=== PATIENT | female | born 1965 | race Caucasian/White ===

== ENCOUNTER 2018-06-15 14:28 | Day surgery (SDC) | payer OTHER ==
[2018-06-15] MEDS ORDERED: Depo-Medrol 40 MG/ML IM ONE (14:29)
[2018-06-15] MEDS ORDERED: DIPRIVAN 200 MG/20 ML IV ONE (14:29)
[2018-06-15] MEDS ORDERED: Marcaine 0.5% SDV 10 ML IJ ONE (14:29)
[2018-06-15] MEDS ORDERED: Lactated Ringers 1,000 ML IV ONE (17:14)
--- NOTE | 2018-06-16 08:43 | XRAY ---
Indication: Left knee injection. Intraoperative fluoroscopy was provided for 6 seconds. Single digital spot image submitted for interpretation demonstrates needle tip projecting over the left femur intercondylar notch. Small amount of contrast injected for needle tip placement. Correlate with intraoperative findings/report.
--- NOTE | 2018-06-16 08:45 | XRAY ---
6 seconds fluoroscopy time in surgery for left knee injection.
== END 2018-06-15 16:40 | disposition home or self-care (01) ==
LOC: SDC-PAIN 14:28
PROVIDERS: ATTEND Psychiatry & Neurology Pain Medicine
DX: M17.12 Unilateral primary osteoarthritis, left knee (principal); I10 Essential (primary) hypertension; J45.909 Unspecified asthma, uncomplicated; Z79.899 Other long term (current) drug therapy
CPT/HCPCS: 20610; 73560; 77002; J1030; J2704; Q9967